=== PATIENT | female | born 2000 | race Two or more races ===

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

== ENCOUNTER 2022-05-02 11:39 | Outpatient (REF) | payer MEDICAID, SELFPAY ==
[2022-05-02 15:30] LABS: CT PCR NOT DETECTED (Not Detect.); NG PCR NOT DETECTED (Not Detect.)
== END 2022-05-02 11:40 | disposition home or self-care (01) ==
LOC: HO.LNP 11:39
PROVIDERS: Visit Provider Obstetrics & Gynecology
DX: Z01.419 Encounter for gynecological examination (general) (routine) without abnormal findings (principal)
CPT/HCPCS: 87491; 87591; 88142

== ENCOUNTER 2022-06-11 11:54 | Outpatient (REF) | payer MEDICAID, SELFPAY | END 2022-06-11 11:55 | disposition home or self-care (01) | LOC: HO.LNP 11:54 | PROVIDERS: PCP Registered Nurse Community Health; Visit Provider Obstetrics & Gynecology | DX: Z01.419 Encounter for gynecological examination (general) (routine) without abnormal findings (principal); R87.615 Unsatisfactory cytologic smear of cervix | CPT/HCPCS: 88142; 99212 ==

== ENCOUNTER → 2022-07-17 14:27 | Outpatient (BNVA) | payer MEDICAID, SELFPAY | PROVIDERS: PCP Registered Nurse Community Health; Visit Provider Advanced Practice Midwife | DX: N92.6 Irregular menstruation, unspecified (principal) | CPT/HCPCS: 81025; 99212 ==

== ENCOUNTER 2022-08-02 15:04 | Outpatient (REF) | payer MEDICAID, SELFPAY ==
--- NOTE | ~2022-08-02 | US_ITS ---
EXAMINATION: US OBSTETRICAL ULTRASOUND CLINICAL INFORMATION: Irregular menstruation COMPARISON: None. LMP: 06/14/2022. Gestational age by maternal dates is 7 weeks 0 days. Estimated date of delivery by maternal dates is 03/21/2023. TECHNIQUE: Ultrasound of the maternal pelvis is performed using transabdominal and transvaginal transducers. Transvaginal imaging is performed due to inadequate visualization transabdominally. M-mode Doppler is also performed. FINDINGS: There is a single living intrauterine gestational sac with visible yolk sac, embryo/fetus, and cardiac activity. Small subchorionic hemorrhage seen. HR: 129 beats per minute. CRL (crown rump length): 0.69 cm (6 weeks 4 days +/- 4 days). IRENE (estimated date of delivery): 03/24/2023 +/- 4 days. MATERNAL ADNEXA: The right maternal ovary measures 3.5 x 1.9 x 2.2 cm. No adnexal mass. The left maternal ovary measures 2.3 x 1.1 x 1.3 cm. No adnexal mass. There is no significant maternal adnexal mass. No maternal pelvic ascites. US/US OB pelvic and transvaginal IMPRESSION: 1. Single living intrauterine gestation with ultrasound gestational age of 6 weeks 4 days +/- 4 days. Small subchorionic hemorrhage. 2. Estimated date of delivery is 03/24/2023 +/- 4 days. 3. No maternal adnexal mass or pelvic ascites.
== END 2022-08-02 15:05 | disposition home or self-care (01) ==
LOC: HO.US 15:04
PROVIDERS: PCP Registered Nurse Community Health; Visit Provider Advanced Practice Midwife
DX: Z34.91 Encounter for supervision of normal pregnancy, unspecified, first trimester (principal); Z3A.01 Less than 8 weeks gestation of pregnancy
CPT/HCPCS: 76801; 76817

== ENCOUNTER → 2022-08-09 09:55 | Outpatient (BNVA) | payer MEDICAID, SELFPAY | PROVIDERS: PCP Registered Nurse Community Health; Visit Provider Advanced Practice Midwife | DX: O21.9 Vomiting of pregnancy, unspecified (principal); Z3A.01 Less than 8 weeks gestation of pregnancy | CPT/HCPCS: 99212 ==

== ENCOUNTER → 2022-08-23 09:48 | Outpatient (BNVA) | payer MEDICAID, SELFPAY | PROVIDERS: PCP Registered Nurse Community Health; Visit Provider Advanced Practice Midwife | DX: Z34.01 Encounter for supervision of normal first pregnancy, first trimester (principal); Z3A.09 9 weeks gestation of pregnancy | CPT/HCPCS: 99212 ==

== ENCOUNTER 2022-09-17 09:49 | Outpatient (REF) | payer MEDICAID, SELFPAY ==
[2022-09-17 13:46] LABS: Hematocrit 37.1 % (37.0-47.0); Hemoglobin 12.6 g/dl (12.0-16.0); Mean Corpuscular Hemoglobin 29.9 pg (27.0-33.0); Mean Corpuscular Volume 88.1 fL (80.0-98.0); Mean Platelet Volume 10.8 fL (9.4-12.3); Platelet Count 315 X10*3/uL (160-400); Red Blood Count 4.21 X10*6/uL (4.20-5.50); Red Cell Distribution Width 11.9 % (11.0-16.0); White Blood Count 7.1 X10*3/uL (4.8-10.8)
[2022-09-17 14:08] LABS: CT PCR NOT DETECTED (Not Detect.); NG PCR NOT DETECTED (Not Detect.)
[2022-09-17 14:24] LABS: Glucose 1 Hour PP 50gm Dose 108 mg/dL (60-140)
[2022-09-17 14:53] LABS: HBsAGNum1 0.33 S/CO (0.00-0.99); HIV AB/AG Nonreactive (Nonreactive); Hepatitis B Surface Antigen Negative (Negative); Syphilis Screen Nonreactive (Nonreactive); ~HepC Num1 0.12 S/CO (0.00-0.79); ~Hepatitis C Antibody Nonreactive (Nonreactive)
[2022-09-17 15:23] LABS: Amphetamine Screen Urine Not Detected (Not Detect); Barbiturates, Urine Not Detected (Not Detect); Benzodiazepines Screen Urine Not Detected (Not Detect); Cannabinoid Screen Urine Not Detected (Not Detect); Cocaine Screen Urine Not Detected (Not Detect); Fentanyl, urine Not Detected (Not Detect); Opiate Screen Urine Not Detected (Not Detect); Phencyclidine Screen Urine Not Detected (Not Detect)
[2022-10-02 23:03] LABS: CF Ethnicity NG; Cystic Fibrosis NEGATIVE (NEGATIVE)
== END 2022-09-17 09:50 | disposition home or self-care (01) ==
LOC: HO.LAB 09:49
PROVIDERS: PCP Registered Nurse Community Health; Visit Provider Advanced Practice Midwife
DX: O99.211 Obesity complicating pregnancy, first trimester (principal); O99.511 Diseases of the respiratory system complicating pregnancy, first trimester; J45.909 Unspecified asthma, uncomplicated; Z3A.13 13 weeks gestation of pregnancy; Z11.3 Encounter for screening for infections with a predominantly sexual mode of transmission
CPT/HCPCS: 0353U; 80307; 81220; 82950; 85027; 86762; 86780; 86787; 86803; 86850; 86900; 87086; 87340; 87389; 87491; 87591; 99212

== ENCOUNTER → 2022-10-15 11:29 | Outpatient (BNVA) | payer MEDICAID, SELFPAY | PROVIDERS: PCP Registered Nurse Community Health; Visit Provider Advanced Practice Midwife | DX: Z34.02 Encounter for supervision of normal first pregnancy, second trimester (principal); Z3A.17 17 weeks gestation of pregnancy | CPT/HCPCS: 81003; 99212 ==

== ENCOUNTER → 2022-11-12 11:12 | Outpatient (BNVA) | payer MEDICAID, SELFPAY | PROVIDERS: PCP Registered Nurse Community Health; Visit Provider Advanced Practice Midwife | DX: Z34.02 Encounter for supervision of normal first pregnancy, second trimester (principal); Z3A.21 21 weeks gestation of pregnancy | CPT/HCPCS: 81003; 99212 ==

== ENCOUNTER → 2022-12-10 10:57 | Outpatient (BNVA) | payer MEDICAID, SELFPAY | PROVIDERS: PCP Registered Nurse Community Health; Visit Provider Advanced Practice Midwife | DX: Z34.02 Encounter for supervision of normal first pregnancy, second trimester (principal); Z3A.25 25 weeks gestation of pregnancy | CPT/HCPCS: 99212 ==

== ENCOUNTER → 2022-12-31 11:24 | Outpatient (BNVA) | payer MEDICAID, SELFPAY | PROVIDERS: PCP Registered Nurse Community Health; Visit Provider Advanced Practice Midwife | DX: O99.213 Obesity complicating pregnancy, third trimester (principal); O99.513 Diseases of the respiratory system complicating pregnancy, third trimester; J45.909 Unspecified asthma, uncomplicated; O26.893 Other specified pregnancy related conditions, third trimester; R12 Heartburn; Z3A.28 28 weeks gestation of pregnancy; Z83.3 Family history of diabetes mellitus; Z79.899 Other long term (current) drug therapy | CPT/HCPCS: 81003; 99212 ==

== ENCOUNTER 2023-01-03 10:06 | Outpatient (REF) | payer MEDICAID, SELFPAY ==
[2023-01-03 12:59] LABS: Hematocrit 35.4 % (37.0-47.0); Hemoglobin 11.6 g/dl (12.0-16.0); Mean Corpuscular HGB Conc 32.8 g/dl (31.0-35.0); Mean Corpuscular Hemoglobin 29.4 pg (27.0-33.0); Mean Corpuscular Volume 89.8 fL (80.0-98.0); Mean Platelet Volume 10.7 fL (9.4-12.3); Platelet Count 291 X10*3/uL (160-400); Red Blood Count 3.94 X10*6/uL (4.20-5.50); Red Cell Distribution Width 12.3 % (11.0-16.0); White Blood Count 7.7 X10*3/uL (4.8-10.8)
[2023-01-03 13:36] LABS: Glucose 1 Hour PP 50gm Dose 123 mg/dL (60-140)
[2023-01-03 14:05] LABS: Syphilis Screen Nonreactive (Nonreactive)
== END 2023-01-03 10:07 | disposition home or self-care (01) ==
LOC: HO.LAB 10:06
PROVIDERS: Visit Provider Advanced Practice Midwife
DX: Z34.82 Encounter for supervision of other normal pregnancy, second trimester (principal); Z20.2 Contact with and (suspected) exposure to infections with a predominantly sexual mode of transmission
CPT/HCPCS: 36415; 82950; 85027; 86780

== ENCOUNTER → 2023-01-15 10:39 | Outpatient (BNVA) | payer MEDICAID, SELFPAY | PROVIDERS: PCP Registered Nurse Community Health; Visit Provider Advanced Practice Midwife | DX: O36.63X0 Maternal care for excessive fetal growth, third trimester, not applicable or unspecified (principal); O99.513 Diseases of the respiratory system complicating pregnancy, third trimester; J45.909 Unspecified asthma, uncomplicated; Z3A.30 30 weeks gestation of pregnancy | CPT/HCPCS: 81003; 99212 ==

== ENCOUNTER 2023-01-29 13:05 | Outpatient (AMB) | payer MEDICAID, SELFPAY ==
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
[2023-01-29 13:10] VITALS: BP 120/72; BMI 32.1
== END 2023-01-29 14:12 | disposition home or self-care (01) ==
LOC: HO.HWS 13:05
PROVIDERS: PCP Registered Nurse Community Health; Visit Provider Advanced Practice Midwife
DX: Z34.93 Encounter for supervision of normal pregnancy, unspecified, third trimester (principal); Z23 Encounter for immunization
CPT/HCPCS: 25942

== ENCOUNTER → 2023-01-29 13:05 | Outpatient (BNVA) | payer MEDICAID, SELFPAY | PROVIDERS: PCP Registered Nurse Community Health; Visit Provider Advanced Practice Midwife | DX: Z34.03 Encounter for supervision of normal first pregnancy, third trimester (principal); Z23 Encounter for immunization; Z3A.32 32 weeks gestation of pregnancy | CPT/HCPCS: 81003; 90471; 90715; 99212 ==

== ENCOUNTER 2023-02-14 10:25 | Outpatient (AMB) | payer MEDICAID, SELFPAY ==
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
[2023-02-14 10:31] VITALS: BP 108/68; BMI 32.9
== END 2023-02-14 10:44 | disposition home or self-care (01) ==
LOC: HO.HWS 10:25
PROVIDERS: PCP Registered Nurse Community Health; Visit Provider Advanced Practice Midwife
DX: Z34.93 Encounter for supervision of normal pregnancy, unspecified, third trimester (principal)
CPT/HCPCS: 25942

== ENCOUNTER → 2023-02-14 10:25 | Outpatient (BNVA) | payer MEDICAID, SELFPAY | PROVIDERS: PCP Registered Nurse Community Health; Visit Provider Advanced Practice Midwife | DX: Z34.03 Encounter for supervision of normal first pregnancy, third trimester (principal); Z3A.34 34 weeks gestation of pregnancy | CPT/HCPCS: 99212 ==

== ENCOUNTER 2023-02-28 11:35 | Outpatient (AMB) | payer MEDICAID, SELFPAY ==
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
[2023-02-28 11:40] VITALS: BP 114/66; BMI 32.9
== END 2023-02-28 12:02 | disposition home or self-care (01) ==
LOC: HO.HWS 11:35
PROVIDERS: PCP Registered Nurse Community Health; Visit Provider Advanced Practice Midwife
DX: Z34.90 Encounter for supervision of normal pregnancy, unspecified, unspecified trimester (principal)
CPT/HCPCS: 25942

== ENCOUNTER 2023-02-28 11:35 | Outpatient (REF) | payer MEDICAID, SELFPAY ==
[2023-02-28 18:07] LABS: CT PCR NOT DETECTED (Not Detect.); NG PCR NOT DETECTED (Not Detect.)
[2023-03-02 09:41] LABS: Allergic to Penicillin? No
== END 2023-02-28 11:36 | disposition home or self-care (01) ==
LOC: HO.LNP 11:35
PROVIDERS: PCP Registered Nurse Community Health; Visit Provider Advanced Practice Midwife
DX: O99.213 Obesity complicating pregnancy, third trimester (principal); O99.513 Diseases of the respiratory system complicating pregnancy, third trimester; E66.9 Obesity, unspecified; J45.909 Unspecified asthma, uncomplicated; Z3A.36 36 weeks gestation of pregnancy; Z20.2 Contact with and (suspected) exposure to infections with a predominantly sexual mode of transmission
CPT/HCPCS: 0353U; 87150; 99212

== ENCOUNTER 2023-03-07 12:56 | Outpatient (AMB) | payer MEDICAID, SELFPAY ==
[2023-03-07 12:58] VITALS: BP 152/92; BMI 33.1
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
== END 2023-03-07 13:11 | disposition home or self-care (01) ==
LOC: HO.HWS 12:56
PROVIDERS: PCP Registered Nurse Community Health; Visit Provider Advanced Practice Midwife
DX: Z34.93 Encounter for supervision of normal pregnancy, unspecified, third trimester (principal)
CPT/HCPCS: 25942; 59426

== ENCOUNTER → 2023-03-07 12:56 | Outpatient (BNVA) | payer MEDICAID, SELFPAY | PROVIDERS: PCP Registered Nurse Community Health; Visit Provider Advanced Practice Midwife | DX: O99.810 Abnormal glucose complicating pregnancy (principal); O99.513 Diseases of the respiratory system complicating pregnancy, third trimester; J45.909 Unspecified asthma, uncomplicated; Z3A.37 37 weeks gestation of pregnancy; Z83.3 Family history of diabetes mellitus | CPT/HCPCS: 99212 ==

== ENCOUNTER 2023-04-18 15:41 | Outpatient (AMB) | payer MEDICAID, SELFPAY ==
--- NOTE | 2023-04-18 15:45 | A.OFFVIS_ITS ---
Intake Vital Signs 04/18/23 15:49 Height 5 ft 1 in Weight 156 lb BMI 29.5 BP 126/74 Intake Visit Reasons: 6 weeks PP Intake Note: The patient agreed to use of a medical officer psychiatry during this encounter. Scribed for BRIAN Garza by Cassidy Arrington medical officer psychiatry, on 04/18/2023 at 4:00 pm EST Tea Blender Required: No Information Interpreted: non-clinical & clinical Customer Sales Specialist: Customer Sales Specialist Present (Luz Maria CROW) Accompanied by: Self / Same As Patient Allergies blueberry [BLUEBERRY] Allergy (Unknown, Verified 04/18/23 15:50) UNK coconut [COCONUT] Allergy (Unknown, Verified 04/18/23 15:50) UNKNOWN pecan nut [PECAN] Allergy (Unknown, Verified 04/18/23 15:50) UNK SEAFOOD Allergy (Unknown, Uncoded 04/18/23 15:50) UNKOWN HPI HPI Comments History of Present Illness Details She is here for 6 week PPV. She had on 03/08/23 at 38 wks, 5lbs 6oz. She was induced due to severe PEC. She is doing well with no concerns. Baby is doing well and growing well. She is breast and bottle feeding with no issues. Taking PNV. She had Depo at discharge, 03/10/23. Went to [facility] ED last week for elevated BP and was given BP meds, needs to schedule PCP appointment for medication refills. She denies any abnormal bleeding or urinary sx. She denies any depression. She denies any itching and irritation. EPDS=? 0 Denies any contraindications to Depo Provera including DVT, PE and blood clotting disorders. [facility] Medical History Severe pre-eclampsia Heart burn Hemorrhoid Asthma Family History Maternal Aunt Breast cancer, Onset Age: 30 Paternal Grandfather Esophageal cancer Maternal Grandmother Diabetes Mother HTN (hypertension) Pre-eclampsia Social History Household Members: Significant Other Both parents involved: Yes Housing: House Are you a primary care director to a significant other at home: No Do you presently have visiting nurse or other home services: No 75 years or older and lives alone: No Alcohol intake: never Patient Tobacco Use Status: Never used Tobacco Special april needs: No Agree to transfusion: Yes Female Reproductive History Menstrual Age of Menarche: 9 Questionnaire [place] Depression [place] Depression Scale I have been able to laugh and see the funny side of things: Not at all I have looked forward with enjoyment to things: Hardly at all I have blamed myself unnecessarily when things went wrong: No, never I have been anxious or worried for no reason: No, not at all I have felt scared of panicky for no very good reason at all: No, not at all Things have been getting on top of me: No, I have been coping as well as ever I have been so unhappy that I have had difficulty sleeping: No, not at all I have felt sad or miserable: No, not at all I have been so unhappy that I have been crying: No, never The thought of harming myself has occurred to me: Never 6 Review of Systems Const All systems reviewed & are unremarkable except as noted in HPI and below Physical Exam Vital Signs: Last Vital Signs BP 126/74 04/18/23 15:49 BMI result Body Mass Index 29.5 Const General: cooperative, healthy appearing, no acute distress, well developed and alert Orientation/consciousness: patient oriented x3 HEENT Head: Yes normal to inspection Eyes General: appearance normal, both eyes and all related structures Neck Neck: Yes normal visual inspection Thyroid: Thyroid normal Chest Chest palpation & inspection: normal inspection of the chest Breast/axilla inspection: normal inspection of the breasts (no puckering, dimpling, peau de orange, retraction, discharge, masses) Breast/axilla palpation: normal palpation of the breasts Resp Effort & Inspection: normal respiratory effort GI Inspection: Yes normal to inspection Palpation (GI): Soft to palpation Rectal Exam - Female: deferred General: Yes bladder normal to palpation External Female Exam: normal external appearance and normal appearance of the urethra Speculum Exam - Vagina: normal appearance of the vagina, normal palpation, normal vaginal discharge and other (sutures healing well) Speculum Exam - Cervix: normal appearance of the cervix and normal palpation Bimanual exam- vagina & uterus: normal bimanual exam, normal palpation, uterine size normal, bladder normal to palpation and normal palpation Bimanual Exam- Adnexa, other: normal adnexae and no masses Skin General skin exam: no rashes or lesions noted Neuro General: patient oriented x3 Cognition (Neuro): normal cognition Extrem General: Yes normal to inspection Psych Attitude: cooperative Thought process: Normal thought process present Assessment & Plan Assessment & Plan (1) Encounter for care and examination after delivery: Code(s): Z39.2 - Encounter for routine follow-up Plan: Can return to light exercise including post- and core strengthening exercises. Maintain a healthy diet and stay well hydrated. Continue Depo Provera. No intimacy until well healed. Encouraged to schedule appointment with PCP for hypertension. She will RTO for Depo in 2 months and in one year for AG. (2) Hypertension: Code(s): I10 - Essential (primary) hypertension Coding Level of Care Code Global (65738) Diagnoses Encounter for care and examination after delivery Z39.2 Hypertension I10 Comment Global fee for care
[2023-04-18 15:49] VITALS: BP 126/74; BMI 29.5
== END 2023-04-18 16:28 | disposition home or self-care (01) ==
PROVIDERS: PCP Registered Nurse Community Health; Visit Provider Advanced Practice Midwife
DX: Z39.2 Encounter for routine postpartum follow-up (principal); I10 Essential (primary) hypertension
CPT/HCPCS: 59430

== ENCOUNTER → 2023-04-18 15:41 | Outpatient (BNVA) | payer MEDICAID, SELFPAY | PROVIDERS: PCP Registered Nurse Community Health; Visit Provider Advanced Practice Midwife ==

== ENCOUNTER 2023-05-14 11:51 | Outpatient (REF) | payer MEDICAID, SELFPAY ==
[2023-05-14 13:55] LABS: Estimated Average Glucose 105 mg/dL; Hemoglobin A1c % 5.3 % (<6.0)
[2023-05-14 14:08] LABS: Anion Gap 13 (12-20); Blood Urea Nitrogen 9 mg/dL (9-16); Calcium 9.6 mg/dL (8.4-10.2); Carbon Dioxide 23 mmol/L (22-29); Chloride 107 mmol/L (96-108); Cholesterol 163 mg/dL (<200); Estimated Glomerular Filt Rate > 60; Glucose Random 91 mg/dL (60-115); HDL Cholesterol 41 mg/dL (>40); LDL Cholesterol Calculated 103 mg/dL (<100); Potassium 3.9 mmol/L (3.3-5.1); Sodium 139 mmol/L (135-145); Triglycerides 98 mg/dL (<150)
== END 2023-05-14 11:52 | disposition home or self-care (01) ==
LOC: HO.HHCL 11:51
PROVIDERS: Visit Provider Registered Nurse
DX: L83 Acanthosis nigricans (principal)
CPT/HCPCS: 36415; 80048; 80061; 83036

== ENCOUNTER 2023-07-19 11:57 | Emergency (ER) | payer MEDICAID, SELFPAY ==
--- NOTE | ~2023-07-19 | XR_ITS ---
EXAMINATION: XR CHEST CLINICAL INFORMATION: Cough. COMPARISON: None available. TECHNIQUE: 2 views of the chest were obtained. FINDINGS: The cardiomediastinal silhouette is within normal limits in size. Lungs bilaterally are symmetrically expanded with mild thickening of the central airways. No focal consolidation, effusion or pneumothorax is seen. Bony structures are unremarkable. XR/XR chest 2V IMPRESSION: Mild thickening of the central airways, suggesting reactive airways disease or bronchitis. No focal pneumonia.
--- NOTE | 2023-07-19 12:38 | ED_ITS ---
HPI - General Adult General Chief complaint: Upper Respiratory Symptoms Stated complaint: cough 2xweeks Time Seen by Provider: 07/19/23 14:06 Source: patient Mode of arrival: ambulatory Limitations: no limitations History of Present Illness HPI narrative: Patient is a 23-year-old female with past medical history asthma presenting to the emergency department for evaluation of a persistent cough for the past 2 we eks. She denies any chest pain or shortness of breath associated with this. She has been using her albuterol inhaler without much improvement. she expresses concern for pneumonia based on her current symptoms, in the past she has been diagnosed with pneumonia after feeling this way. She reports taking a home COVID- 19 test which was negative. She denies any known sick contacts. Denies any fevers or chills. Related Data Home Medications Medication Instructions Recorded Confirmed albuterol sulfate 90 mcg/actuation 2 puff inhalation Q6H PRN 09/17/22 aerosol inhaler amlodipine 5 mg tablet 5 mg PO DAILY 04/18/23 medroxyprogesterone 150 mg/mL 150 mg IM [id number] 04/18/23 intramuscular syringe (Depo-Provera) Previous Rx's Medication Instructions Recorded vitamin with calcium 1 tab PO DAILY #30 tabs 07/17/22 no.72-iron 27 mg-folic acid 1 mg tablet ( Vitamins Plus Low Iron) aspirin 81 mg chewable tablet 162 mg (2 x 81 mg) PO DAILY #60 09/17/22 (Aspirin Childrens) tabs famotidine 10 mg tablet (Pepcid AC) 10 mg PO BID 30 days #60 tabs 12/31/22 ferrous sulfate 325 mg (65 mg 325 mg PO DAILY #90 tabs 01/03/23 iron) tablet azithromycin 250 mg tablet See Rx Instructions PO .COMPLEX #6 07/19/23 tabs Allergies Allergy/AdvReac Type Severity Reaction Status Date / Time blueberry [BLUEBERRY] Allergy Unknown UNK Verified 04/18/23 15:50 coconut [COCONUT] Allergy Unknown UNKNOWN Verified 04/18/23 15:50 pecan nut [PECAN] Allergy Unknown UNK Verified 04/18/23 15:50 SEAFOOD Allergy Unknown UNKOWN Uncoded 04/18/23 15:50 Review of Systems Review of Systems: Yes all other systems are reviewed and are negative PMFSH Past Medical History Attestation statement: The following information was validated with the patient. Source: old records reviewed Medical History Severe pre-eclampsia Heart burn Hemorrhoid Asthma Family History Family History Maternal Aunt Breast cancer, Onset Age: 30 Paternal Grandfather Esophageal cancer Maternal Grandmother Diabetes Mother HTN (hypertension) Pre-eclampsia Social History Social History Household Members: Significant Other Housing: House Are you a primary multi care technician to a significant other at home: No Do you presently have visiting nurse or other home services: No Alcohol intake: never Patient Tobacco Use Status: Never used Tobacco Special terri needs: No Agree to transfusion: Yes Advance Directives: No Advance Directives Information Provided: Yes Physical Exam ED Vital Signs: Vital Signs - 24 hr 07/19/23 12:39 Temperature 96.7 F L Pulse Rate 90 Respiratory Rate 17 Blood Pressure 134/92 H Pulse Oximetry 99 Oxygen Delivery Method Room Air BMI result Body Mass Index 31.2 Appearance: Alert.?Oriented to person, place and time. No acute distress.?Normal affect. Eyes: Pupils equal, round and reactive to light.? ENT: Pharynx normal.?? TM normal bilaterally. Uvula midline. No trismus. No drooling. Neck: Normal inspection.? Neck supple.?? No cervical lymphadenopathy CVS: Heart sounds normal. Normal heart rate and rhythm.? Pulses normal.?? Respiratory: No respiratory distress.? Lung sounds clear to auscultation bilaterally?? Abdomen: Soft and non-tender. Normoactive bowel sounds. ?? Skin: Skin warm and dry.? Normal skin color.? Extremities: No lower extremity edema.? Neuro: Moves all extremities spontaneously. Sensation intact bilaterally. No focal neuro deficits. Ambulates with normal steady gait. Course Course Course Narrative: RME- 23 year old female with history of asthma p[resents for evaluation of a cough. She reports her symptoms started 2 weeks ago. Denies chest pain or fevers. Home COVID test negative. Plan for chest x-ray Medical Decision Making Medical Decision Making MDM Narrative: Patient is a 23-year-old femalepresenting for evaluation of upper respiratory symptoms. declines testing for COVID- 19 and influenza today. Pharynx is without abnormality. At this time history and physical exam not consistent with ACS/PE. CXR is without evidence of pneumonia. Symptoms at this time consistent with bronchitis, shared he has an albuterol inhaler at home, will also send a prescription for azithromycin to the pharmacy, based on examination do not feel that she requires prednisone. Well-appearing, nontoxic, afebrile, no tachycardia or tachypnea/hypoxia. Speaking clear full sentences, ambulatory with steady gait. Discussed conservative treatment including rest, hydration, Tylenol/ibuprofen as needed for fever and body aches, saline nasal spray, humidifier, [id number] cold medication. Advised to follow-up with primary care provider as needed, discussed reasons to return back to the emergency department. All questions were answered. Patient discharged home in stable condition. Differential Diagnosis Differential Diagnoses: The differential diagnosis associated with the presentation includes ( See narrative above) Admission/Observation Consideration of admission/observation: Escalation of care including admission/observation considered ( the narrative above) Independent Interpretation I performed an independent interpretation of an: Plain X-Ray ( personally interpreted x-ray and agree with radiologist impression.) Radiology Impression Discussion of test interpretation with radiology: I have reviewed the radiologist's reading. Radiologist Impression: XR/XR chest 2V IMPRESSION: Mild thickening of the central airways, suggesting reactive airways disease or bronchitis. No focal pneumonia. External Record Review External record reviewed: Outpatient record Tests considered The following testing was considered but not selected: The narrative above Prescription Management I considered prescription management with: Antibiotic Discharge Plan Discharge Clinical Impression: Bronchitis Patient Disposition: Home, Self-Care Instructions: Acute Bronchitis (ED) Prescriptions: New azithromycin 250 mg tablet See Rx Instructions .ROUTE .COMPLEX Qty: 6 0RF Rx Instructions: For 250 mg dose pack: take 500 mg today (day 1), then 250 mg for 4 days (days 2-5) No Action ferrous sulfate 325 mg (65 mg iron) tablet 325 mg PO DAILY Qty: 90 2RF Vitamin Plus Low Iron 27 mg iron- 1 mg tablet 1 tab PO DAILY Qty: 30 11RF albuterol sulfate 90 mcg/actuation HFA aerosol inhaler 2 puff inhalation Q6H PRN aspirin [Aspirin Childrens] 81 mg tablet,chewable 162 mg PO DAILY Qty: 60 7RF Rx Instructions: start 2 tabs daily at bedtime at 14-16weeks and continue daily until 2 weeks famotidine [Pepcid AC] 10 mg tablet 10 mg PO BID 30 Days Qty: 60 2RF medroxyprogesterone [Depo-Provera] 150 mg/mL syringe 150 mg IM [id number] amlodipine 5 mg tablet 5 mg PO DAILY Referrals: Terri Bass, [facility] [Primary Care Provider] -
[2023-07-19 12:39] VITALS: BP 134/92; PULSE 90; RESP 17; TEMP 35.9; O2SAT 99; BMI 31.2
== END 2023-07-19 15:52 | disposition home or self-care (01) ==
PROVIDERS: Emergency Provider Emergency Medicine; PCP Registered Nurse
DX: J40 Bronchitis, not specified as acute or chronic (principal); R05.9 Cough, unspecified
CPT/HCPCS: 71046; 99283